=== PATIENT | female | born 1950 | race African-American/Black ===

== ENCOUNTER → 2016-12-01 | Outpatient (CLI) | payer MEDICARE, MEDICAID ==
[~2016-12-01] MED LIST: ATIVAN2 MG/1 ML IV; BENAZEPRIL HCL40 MG ORAL; FUROSEMIDE40 MG ORAL; IBUPROFEN200 M2 ORAL; METRONIDAZOLE500 MG IV; ZOSYN3.375 GM IV
== END | disposition home or self-care (01) ==
LOC: CAR 08:51
DX: Z01.818 Encounter for other preprocedural examination (principal)
CPT/HCPCS: 93005